=== PATIENT | male | born 1995 | race Caucasian/White ===

== ENCOUNTER 2022-09-22 15:35 | Emergency (ER) | payer SELFPAY ==
[~2022-09-22] VITALS: Ht 172.7 cm; Wt 72.6 kg
[2022-09-22 16:22] VITALS: BP 138/80
--- NOTE | 2022-09-22 16:25 | NUR ---
AMBULATED TO BED IN NO DISTRESS. The patient's care was reviewed and supervised by EBEN LOWE RN.
--- NOTE | 2022-09-22 16:51 | NUR ---
Patient returned from X-Ray.
[2022-09-22] MEDS ORDERED: IBUP-2213 PO (17:52)
[2022-09-22 18:30] VITALS: BP 128/78
--- NOTE | 2022-09-22 18:30 | NUR ---
Patient discharged with v/s stable. Written and verbal after care instructions given. Patient alert, oriented and verbalized understanding of instructions. Ambulatory with steady gait. All questions addressed prior to discharge. ID band removed. Patient advised to follow up with PMD. Rx of Ibuprofen given. Opportunity to ask questions provided and answered. CD AND COPY OF XRAYS GIVEN TO PATIENT.
--- NOTE | 2022-09-22 18:42 | NUR ---
Note juliologan in EDM - 09/22/22 at 1843 by ERNESTINA Patient discharged with v/s stable. Written and verbal after care instructions given. Patient alert, oriented and verbalized understanding of instructions. Ambulatory with steady gait. All questions addressed prior to discharge. ID band removed. Patient advised to follow up with PMD. Rx of Ibuprofen given. Opportunity to ask questions provided and answered. CD AND COPY OF XRAYS GIVEN TO PATIENT.
== END 2022-09-22 18:30 | disposition home or self-care (01) ==
LOC: MED 15:35
DX: S39.012A Strain of muscle, fascia and tendon of lower back, initial encounter (principal); M41.9 Scoliosis, unspecified; Z79.899 Other long term (current) drug therapy; X58.XXXA Exposure to other specified factors, initial encounter; Y93.89 Activity, other specified; Y92.89 Other specified places as the place of occurrence of the external cause; Y99.8 Other external cause status
CPT/HCPCS: 72080; 99283